=== PATIENT | female | born 1970 | race African-American/Black ===

== ENCOUNTER → 2016-03-27 | Outpatient (CLI) | payer OTHER ==
[~2016-03-27] MED LIST: ASPI325T45 EN; HYDR-5688 PO; IBUP-1449 PO; ONDA4TAB65 PO; TRAM-10 PO
--- NOTE | 2016-03-27 13:00 | DIAGNOSTIC IMAGING REPORT ---
MRI OF THE RIGHT KNEE CLINICAL HISTORY: Right knee pain. COMPARISON STUDY: Radiographs of the right knee dated 02/13/2016. TECHNIQUE: MRI of the right knee was performed utilizing proton density, T1, and T2-weighted sequences in the axial, sagittal, coronal planes. IV contrast was not administered for this examination. The examination is significantly degraded by large body habitus which necessitated using the body coil. FINDINGS: Menisci: The the lateral meniscus is intact. There is questionable tear involving the meniscal root of the medial meniscus. The medial meniscus is slightly extruded. Ligaments: The anterior and posterior cruciate ligaments are intact. The medial and lateral collateral ligaments are within normal limits. Extensor mechanism: The extensor mechanism is intact. Hoffa's fat pad is normal in appearance. There is mild nonspecific edema within the suprapatellar fat pad. Articular cartilage and bone: There is mild degenerative thinning of the articular cartilage in the lateral patellar facet. There is greater than 50% focal thinning of the articular cartilage in the medial patellar facet. No reactive marrow edema is seen. There is less than 50% thinning of the articular cartilage along the weightbearing surface in the medial and lateral compartments. No full-thickness cartilage loss is seen. Normal marrow signal is preserved of the visualized bony structures. Joint effusion: There is a moderate to large joint effusion. Soft tissues: There is symmetric atrophy of the regional musculature. There is soft tissue edema within the superficial and deep soft tissues around the knee. A popliteal cyst containing internal debris measures up to 5 cm. IMPRESSION: 1. Question a tear at the posterior root of the medial meniscus. 2. The cruciate ligaments, the collateral ligaments, and the lateral meniscus are intact. 3. Moderate to large joint effusion and popliteal cyst. 4. There is superficial and deep soft tissue edema involving the knee. 5. There is mild nonspecific edema within the suprapatellar fat pad. This can be seen in the quadriceps fat pad impingement syndrome. Clinical correlation will be required. Electronically signed by: Enrique Webb M.D. 03/27/2016 12:59 PM Dictated Date/Time: 03/27/2016 12:46 PM
== END | disposition home or self-care (01) ==
LOC: C.MRI 08:07
PROVIDERS: ATTEND Physical Medicine & Rehabilitation Sports Medicine
DX: M25.461 Effusion, right knee (principal); M71.21 Synovial cyst of popliteal space [Baker], right knee

== ENCOUNTER → 2016-04-03 | Outpatient (CLI) | payer OTHER | END | disposition home or self-care (01) | LOC: C.RDSM 08:00 | PROVIDERS: ATTEND Physical Medicine & Rehabilitation Sports Medicine | DX: M25.561 Pain in right knee (principal) ==

== ENCOUNTER → 2016-04-30 | Day surgery (SDC) | payer OTHER ==
[2016-04-17 14:39] LABS: BASO % 0.2 %; BASO ABS # 0.01 K/uL (0-0.2); COMPLETE YES; EOS % 0.2 %; HEMATOCRIT 36.6 % (37-47); IG% 0.2 %; LYMPH % 47.5 %; LYMPH ABS # 2.75 K/uL (1.2-3.4); MEAN CELL VOLUME 88.2 fL (80-100); MEAN CORPUSCULAR HEMOGLOBIN 29.2 pg (25-34); MEAN CORPUSCULAR HGB CONC 33.1 g/dl (32-36); MEAN PLATELET VOLUME 10.6 fL (7.4-10.4); MONO % 6.7 %; NEUT % 45.2 %; PLATELET COUNT 183 K/uL (130-400); RED BLOOD COUNT 4.15 M/uL (4.2-5.4); WHITE BLOOD COUNT 5.79 K/uL (4.8-10.8)
[2016-04-17 15:09] LABS: ALT/SGPT 32 U/L (12-78); BLOOD UREA NITROGEN 13 mg/dl (7-18); BUN/CREATININE RATIO 18.1 (10-20); CALCIUM 8.9 mg/dl (8.5-10.1); CARBON DIOXIDE 25 mmol/L (21-32); CHLORIDE 104 mmol/L (98-107); CREATININE 0.72 mg/dl (0.60-1.20); GLUCOSE 75 mg/dl (70-99); POTASSIUM 3.6 mmol/L (3.5-5.1); SODIUM 138 mmol/L (136-145)
[2016-04-17 15:11] LABS: ALB/GLOB RATIO 0.9 (0.9-2); ALKALINE PHOSPHATASE 63 U/L (45-117); AST/SGOT 23 U/L (15-37)
[2016-04-17 15:20] VITALS: Ht 170.2 cm; Wt 94.5 kg
[~2016-04-30] VITALS: Ht 170.2 cm; Wt 94.5 kg
[~2016-04-30] MED LIST changes: +ATROPINE SULFATE 0.1 MG/ML 5ML SYR IV PRN; +BUPIVACAINE/EPINEPHRINE 0.5% MPF 1:200,000 30 ML VIAL ONE; +CEFAZOLIN 2000 MG/60 ML D5W IV SCH; +DEXAMETHASONE SOD INJ 4 MG/ML VIAL ONE; +DiphenhydrAMINE HCL 50 MG/ML VIAL ONE; +EpHEDrine SULFATE INJ 50 MG/ML AMP IV PRN; +EpHEDrine SULFATE INJ 50 MG/ML AMP ONE; +FENTANYL CITRATE INJ 50 MCG/1 ML 2 ML VIAL IV PRN; +FENTANYL CITRATE INJ 50 MCG/1 ML 2 ML VIAL ONE; +HYDROCODONE/ACETAMOPHEN 5/325MG TAB PO PRN; +KETOROLAC TROMETHAMINE 30 MG/ML VIAL IV STA; +KETOROLAC TROMETHAMINE 30 MG/ML VIAL ONE; +LABETALOL HCL IV 5 MG/ML 20ML IV STA; +LABETALOL HCL IV 5 MG/ML 20ML ONE; +LACTATED RINGER'S 1000ML 1,000 ML IV SCH; +LIDOCAINE HCL 2% 2 ML VIAL (20MG/ML) ONE; +LIDOCAINE/EPINEPHRINE 1% INJ 50 ML VIAL ONE; +MIDAZOLAM HCL 1 MG/ML 2ML VIAL ONE; +MoRPHine SULFATE 2 MG/ML CARP IV PRN; +ONDANSETRON INJ 2 MG/ML 2 ML VIAL IV PRN; +ONDANSETRON INJ 2 MG/ML 2 ML VIAL ONE; +PROPOFOL IV EMULSION 10 MG/ML 20 ML VIAL IV ONE; +SODIUM CHLORIDE 0.9% 1000ML 1,000 ML IV SCH; +SODIUM CHLORIDE 0.9% INJ 10 ML VIAL ONE
--- NOTE | 2016-04-30 11:27 | History & Physical Bridge Note ---
H&P Re-Evaluation Bridge Note: I have examined the patient, reviewed the History & Physical and in the interval since the performance of the History & Physical I have noted the following changes of clinical significance: No changes noted
--- NOTE | 2016-04-30 14:14 | [facility] Post Operative Brief Note ---
Immediate Operative Summary Operative Date Apr 30, 2016. Pre-Operative Diagnosis Right knee medial meniscus tear Post-Operative Diagnosis same, chondrmalacia Procedure(s) Performed Right Knee Arthroscopy, Medial Meniscus root Repair, Chrondroplasty of patella and medial femoral condyle Surgeon Dr Mcelroy Back Tufter Surgeon(s) Dr Zhou, megan krause, ms3 Estimated Blood Loss minimal Findings patella, medical condyle chondrosis, medial meniscus posterior root tear Specimens 0 Anesthesia LMA Complication(s) None Disposition Recovery Room / PACU
--- NOTE | 2016-04-30 14:34 | Discharge Instructions-SurgCtr ---
Discharge Instructions Date of Service Apr 30, 2016. Visit Reason for Visit: Right Knee Medial Meniscus Tear Discharge Discharge Diagnosis / Problem: Status post right medial meniscal root repair Discharge Goals Goal(s): Decrease discomfort, Improve function, Increase independence Medications Stopped Medications Name(s): D/C'D Motrin 04/17/16. Activity Recommendations Activity Limitations: per Instructions/Follow-up section Anesthesia . Post Anesthesia Instructions: If you have had General Anesthesia or IV Sedation: * Do not drive today. * Resume driving when surgeon permits. * Do not make important decisions or sign legal documents today. * Call surgeon for: 1. Temperature elevations greater than 101 degrees F. 2. Uncontrollable pain. 3. Excessive bleeding. 4. Persistent nausea and vomiting. 5. Medication intolerance (nausea, vomiting or rash). * For nausea and vomiting use only clear liquids such as: tea, soda, bouillon until nausea subsides, then gradually increase diet as tolerated. * If you have any concerns or questions, call your surgeon's office. If physician is unavailable and it is an emergency, call 911 or go to the nearest emergency room. . Instructions / Follow-Up Instructions / Follow-Up If you have any questions contact the office at . ACTIVITY RECOMMENDATIONS: * Heavy manual labor is not permitted until 4-6 months after surgery. * Sports are not permitted until 6-9 months after surgery. * Return to activity is individualized. * DRIVING: Driving is not permitted until 3-4 weeks after surgery at a minimum. Please ask your doctor when it is safe to resume driving. If you have an automatic vehicle and your left leg has been operated on, then you may begin driving as soon as you are comfortable and can drive safely. * BATHING: You may shower or sponge-bathe immediately after surgery. The dressing will need to be covered with a plastic bag or plastic wrap until the dressing is changed on the fourth or fifth day after surgery. Once the dressing has been changed on the fourth or fifth day after surgery, you may shower and get the incision wet. * Wash with regular soap and water. * Do not bathe (submerge the incision), soak, swim or use a hot tub until the incision is completely healed over with normal skin and the doctor has given the OK to proceed. * There is no need to apply any ointments, powders or salves to your incision. * Do not apply alcohol or hydrogen peroxide directly to the incision. Diluted peroxide (50:50 mixture with sterile saline) may be used to clean dried blood from around the incision area. WORK/SCHOOL: * You may return to sedentary work or school when you are feeling comfortable. This is usually 3-7 days after surgery. * Expect increased discomfort with increased activity. Continue to elevate and ice the leg as much as possible. DIET: * Resume previous diet. MEDICATIONS: * You will have a prescription for pain medication and an anti-inflammatory medication after surgery. Use the pain pills for severe pain and the anti-inflammatory for less severe pain. * Once the pain pills have run out, try to use the anti-inflammatory. If this is not effective then contact the office for assistance. * The pain medication may cause nausea, constipation and sleepiness. You should see how they affect you before driving or similar activity. * The anti-inflammatory may cause stomach upset and bleeding. If this occurs, let your doctor know immediately . * Some patients may need blood clot prevention. This can be done with either a pill or a simple shot. Your doctor will advise you on when to begin these medications and how to take them. * Do not take aspirin or other anti-inflammatory products (i.e. Advil or Aleve ) if taking blood thinner medication. * Take a stool softener like Colace or a stimulant like Senokot to prevent constipation. SPECIAL CARE INSTRUCTIONS: The following instructions are a useful guide to questions you may have after your surgery. If you have any questions contact the office at . ICE: * You have the option of an ice cooler, gel packs or ice bags. * If you have an ice cooler, refer to the instructions for that device. * If you do not have an ice cooler, then you will need to use ice bags or gel packs. * Do not apply ice directly to the skin. * Use a thin dressing or stockinet between the skin and ice bag. * Apply ice for 20-30 minutes and repeat every 2-4 hours. This is especially important for the first 7-10 days after surgery. * Once the pain improves, use ice as needed. * The ice cooler can be used continuously. ELEVATION: * Keep your leg elevated at or above the level of your heart as much as possible. * Expect some increased discomfort and swelling if you are standing for any length of time. * When lying down, avoid placing anything under your knee. Rather, prop your leg up by placing several pillows under your heel or calf. DRESSING: * Your dressing will be changed at your first therapy appointment approximately 4-5 days after surgery. * Band-Aids, tape strips or gauze may be applied. You may then change your dressing daily. * Always wash your hands prior to touching the incision area. * Reapply dressing followed by the Navid wrap or Tubi-coremaker floor stockinet, ice cooling pad and then the brace. * Once the stitches are removed, you may leave the wound open to air or cover with an Navid Bandage or Tubi-coremaker floor stockinet. * If you have been given a white elastic stocking (DANELLE hose), wear as much as possible for the first 1-3 weeks depending on swelling. * Expect some bloody drainage for the first few days after surgery. * Leave the tape strips in place for 5-7 days. * Band-Aids and gauze may be changed daily. CRUTCHES: * You will need to use crutches after surgery. * Until your first doctor's appointment, you must use your crutches at all times when walking and should put no more than 50% of your normal weight on the surgical leg. * After your first doctor's appointment, you may gradually progress to full weight bearing and discontinue crutches as tolerated under the guidance of your therapist. * If you have had a microfracture procedure done, you may be advised to be non- weight bearing for up to 6 weeks. BRACE: * After surgery, you will be placed into a range of motion brace locked with your leg straight. This brace is to be worn at all times when walking (even with the crutches) and sleeping until your first doctors appointment. * The brace may be removed for therapy. * After your first therapy appointment, your therapist will open the brace to allow bending of the knee once your muscles are working better. * Until your first doctor's appointment, you should sleep with your brace locked with your knee fully straight. * If you have chosen to use a functional ACL brace then this brace will be supplied about 2-3 months after your surgery. During that time, you will attend therapy 2- 3 times per week. You will also need to do daily exercises for range of motion and strength as instructed. PROBLEMS/QUESTIONS: * If you have any problems such as severe pain, numbness, tingling or high fevers or if you have any questions, please contact the office at [phone]. * It is not uncommon to have some numbness and tingling after the surgery especially if you have had a nerve block done. This should gradually improve over the first 1- 2 days. If this persists longer or worsens then contact the office. FOLLOW UP VISIT: * If not already scheduled, please call the office at to schedule follow-up appointments for approximately 10 days and one month after surgery followed by monthly appointments thereafter. * Follow up with Dr. Mcelroy 05/11/16 at 1pm * Follow up with Physical Therapy 05/04/16 at 10.30am Diet Recommendations Home Diet: no limitations, resume previous diet Procedures Procedures Performed: Right Knee Arthroscopy, Medial Meniscus root Repair, Chrondroplasty of patella and medial femoral condyle Pending Studies Studies pending at discharge: no Medical Emergencies . Who to Call and When: Medical Emergencies: If at any time you feel your situation is an emergency, please call 911 immediately. . Non-Emergent Contact Non-Emergency issues call your: Surgeon Call Non-Emergent contact if: temperature is above 101, your pain is not controlled, wound has increased drainage . . "Provider Documentation" section prepared by Butch Shine.
--- NOTE | 2016-04-30 14:36 | [facility] Post Operative Brief Note ---
Immediate Operative Summary Operative Date Apr 30, 2016. Pre-Operative Diagnosis Right knee medial meniscus tear Post-Operative Diagnosis same, chondrmalacia Procedure(s) Performed Right Knee Arthroscopy, Medial Meniscus root Repair, Chrondroplasty of patella and medial femoral condyle Surgeon Dr Mcelroy Riding Teacher Surgeon(s) megan Claros, ms3 Estimated Blood Loss minimal Specimens 0 Complication(s) None Disposition PCU
[2016-04-30 15:13] VITALS: TEMP 36.9
[2016-04-30 16:14] VITALS: BP 136/84; PULSE 80; O2SAT 99
--- NOTE | 2016-04-30 16:18 | Anesthesia Progress Nt - [facility] ---
Anesthesia Post Op Note Date & Time Apr 30, 2016 at 16:18 Vital Signs Pain Intensity: 3.0 Vital Signs Past 12 Hours Date Time Temp Pulse Resp B/P Pulse Ox O2 Delivery O2 Flow Rate FiO2 04/30/16 16:14 80 136/84 99 Room Air 04/30/16 16:00 75 155/90 97 Room Air 04/30/16 15:25 76 156/98 98 Room Air 04/30/16 15:15 159/99 04/30/16 15:13 36.9 71 16 151/94 99 Room Air 04/30/16 15:11 78 21 97 04/30/16 15:11 78 21 04/30/16 15:10 151/94 04/30/16 15:06 78 12 04/30/16 15:06 77 12 100 04/30/16 15:05 172/107 04/30/16 15:01 69 14 04/30/16 15:01 68 14 100 04/30/16 15:00 157/106 04/30/16 14:56 77 14 04/30/16 14:56 76 14 100 04/30/16 14:55 149/94 04/30/16 14:51 70 13 100 04/30/16 14:51 70 13 04/30/16 14:50 149/102 04/30/16 14:46 73 12 04/30/16 14:46 73 12 100 04/30/16 14:45 164/103 04/30/16 14:41 86 13 04/30/16 14:41 86 13 100 04/30/16 14:40 166/97 04/30/16 14:36 69 17 100 04/30/16 14:36 70 17 04/30/16 14:35 156/100 04/30/16 14:31 79 16 100 04/30/16 14:31 79 16 04/30/16 14:30 157/105 04/30/16 14:26 91 04/30/16 14:26 91 156/113 100 04/30/16 14:26 37.1 90 12 156/113 100 Diffusion Mask 6 04/30/16 09:59 36.7 89 16 159/100 98 Room Air Notes Mental Status: alert / awake / arousable, participated in evaluation Pt Amnestic to Procedure: Yes Nausea / Vomiting: adequately controlled Pain: adequately controlled Airway Patency, RR, SpO2: stable & adequate BP & HR: stable & adequate Hydration State: stable & adequate Anesthetic Complications: no major complications apparent
--- NOTE | 2016-04-30 16:28 | OPERATIVE REPORT ---
DATE OF OPERATION: 04/30/2016 PREOPERATIVE DIAGNOSIS: Medial meniscal root tear of the right knee. 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 PROCEDURES: Chondroplasty of the medial femoral condyle and patella and repair of medial meniscal root posterior horn. SURGEON: Dr. Cheo Mcelroy. REHABILITATION SERVICES COORDINATOR: Butch Hernandez, fellow. No PA available. SECOND REHABILITATION SERVICES COORDINATOR: Alicia Hurd [facility] [employer] [facility] [employer] third year medical student. ANESTHESIA: Laryngeal mask. INDICATIONS OF PROCEDURE: The patient is a 45-year-old female who has pain and swelling in her right knee. Her exam was consistent with a torn meniscus. The MRI demonstrates a medial meniscal root tear and she is taken to surgery for surgical debridement versus repair depending on findings. Treatment options, risks and benefits were discussed and she elected to proceed with surgery. PROCEDURE IN DETAIL: Informed consent was obtained. The patient was identified as Kina Saenz. She identified the operative site as the right knee. I marked it with my initials. A preop surgical timeout was performed. A preop dose of IV antibiotics was given. She was taken to the operating room and positioned supine on the operating room table. A tourniquet was applied to the right thigh. A lateral post was used for stressing the knee. The limb was prepped and draped in the usual sterile fashion. She had a moderate effusion. She had intact cruciate and collateral stability with range of motion of approximately 7/0/135, equal bilaterally. Her right leg was prepped and draped in the usual sterile fashion. DVT prophylaxis intraoperatively with foot pump and postoperatively with early mobility and aspirin. Prior to start of procedure, 1% lidocaine with epinephrine, approximately 12 mL, was injected into the fat pad, portal sites and knee joint. Inferolateral viewing portal, superolateral outflow portal, and inferomedial working portal were established. Diagnostic arthroscopy was performed. A moderate effusion was evacuated. Cartilaginous debris was noted in the knee along with some generalized synovitis. There was some grade 1 and 2 chondrosis involving the medial portion of the patellar facet and median ridge, which was debrided. The patella otherwise was normal. Trochlea normal. There was a small loose body about 0.5 cm in size, which was evacuated during the debridement. The retropatellar fat pad was hypertrophic and was debrided. The medial and lateral gutters were normal. Popliteal hiatus was normal. The posteromedial and lateral compartments were normal. The ACL and PCL were normal. The lateral compartment showed some grade 1 softening of the lateral tibial plateau, normal femoral articular cartilage and normal lateral meniscus. The medial compartment showed some grade 1 and 2 changes over 1.5 x 1.5 cm area of the weightbearing area of the medial femoral condyle. This was not a high-grade damage and certainly not down to the bone. The tibial side was normal. The meniscus showed a posterior horn root tear within 1 cm of the meniscal root. The meniscus otherwise was normal with good quality tissue and repair was elected. I debrided the posterior horn meniscal root area to prepare for repair. The MCL was perforated with a spinal needle to improve visualization. An anteromedial incision was made for the drill. The [employer] drill guide was inserted at a 45 degree angle. A pin was drilled into place in good position at the posterior root attachment. A guide was placed over the drill bit and exchanged for a FlipCutter drill at the same position. The FlipCutter deployed and a socket of 5 mm depth x 6 mm diameter was drilled. A FiberTape was then shuttled up into this tunnel for later retrieval. I then went ahead and used the meniscal scorpion to pass 2-0 FiberWire lengths through the meniscal tissue in the mid portion of the posterior horn and body, about 4 and 8 mm medial to the tear. These were passed and tightened through the loop and then shuttled down the tibial tunnel with the fiber stick. The tensor was then applied and the tear reduced nicely into the socket. The knee was then held in about 20 degrees of flexion and the sutures were tied over small button on the tibial tunnel. This was dissected directly down to the bone, so that the button can rest on the bone. After repair, the knee could be fully extended and flexed to about 30 degrees with no difficulty and the repair was stable. The shaver was run through the knee to pickling grader loose debris. The portals were closed with 4-0 nylon. The incision was closed with 0 Vicryl and a 3-0 Prolene subcuticular stitch, a full length Navid wrap and a soft sterile dressing was applied along with a hinged brace locked in extension. The patient was awakened from anesthesia without difficulty and taken to recovery in stable condition. There were no specimens or complications. Counts were correct at the end of case. Blood loss was minimal. At the conclusion of the operation, I spoke to the patient's family and informed them of my findings. Postoperative instructions were given. I spoke with her . Prior to the repair, the tourniquet was inflated to 250 mmHg after exsanguinating the limb with the Esmarch and that was let down after 60 minutes of inflation at the conclusion of the procedure. She is to be nonweightbearing with her leg locked in extension using the brace. She is unable work. She is to take aspirin 325 mg for DVT prophylaxis beginning tomorrow morning. The meniscal tear appeared to be somewhat acutely subacute as there appeared to be some granulation tissue. There was some granulation tissue present and the meniscal tissue was not significantly atrophied or healed over a smooth fashion. It appeared to be more frayed in nature. The meniscal quality of tissue was good. I attest to the content of the Intraoperative Record and any orders documented therein. Any exceptio ns are noted below.
--- NOTE | 2016-04-30 16:46 | Medical Student: [facility] ---
Immediate Operative Summary Operative Date Apr 30, 2016. Pre-Operative Diagnosis Medial meniscal root tear of the R knee Post-Operative Diagnosis Medial meniscal root tear of R knee,chondrosis of femoral condyle & patella Procedure(s) Performed Right knee arthroscopy Repair of medial mensical root tear of right knee Chondroplasty of right medial femoral condyle and patella Surgeon Dr. 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
== END | disposition home or self-care (01) ==
LOC: X.SURG 09:28
PROVIDERS: ATTEND Physical Medicine & Rehabilitation Sports Medicine
DX: M23.231 Derangement of other medial meniscus due to old tear or injury, right knee (principal); M94.261 Chondromalacia, right knee; D64.9 Anemia, unspecified; E03.9 Hypothyroidism, unspecified; Z98.890 Other specified postprocedural states

== ENCOUNTER → 2016-05-11 | Outpatient (CLI) | payer OTHER ==
[~2016-05-11] MED LIST changes: -ATROPINE SULFATE 0.1 MG/ML 5ML SYR IV PRN; -BUPIVACAINE/EPINEPHRINE 0.5% MPF 1:200,000 30 ML VIAL ONE; -CEFAZOLIN 2000 MG/60 ML D5W IV SCH; -DEXAMETHASONE SOD INJ 4 MG/ML VIAL ONE; -DiphenhydrAMINE HCL 50 MG/ML VIAL ONE; -EpHEDrine SULFATE INJ 50 MG/ML AMP IV PRN; -EpHEDrine SULFATE INJ 50 MG/ML AMP ONE; -FENTANYL CITRATE INJ 50 MCG/1 ML 2 ML VIAL IV PRN; -FENTANYL CITRATE INJ 50 MCG/1 ML 2 ML VIAL ONE; -HYDROCODONE/ACETAMOPHEN 5/325MG TAB PO PRN; -KETOROLAC TROMETHAMINE 30 MG/ML VIAL IV STA; -KETOROLAC TROMETHAMINE 30 MG/ML VIAL ONE; -LABETALOL HCL IV 5 MG/ML 20ML IV STA; -LABETALOL HCL IV 5 MG/ML 20ML ONE; -LACTATED RINGER'S 1000ML 1,000 ML IV SCH; -LIDOCAINE HCL 2% 2 ML VIAL (20MG/ML) ONE; -LIDOCAINE/EPINEPHRINE 1% INJ 50 ML VIAL ONE; -MIDAZOLAM HCL 1 MG/ML 2ML VIAL ONE; -MoRPHine SULFATE 2 MG/ML CARP IV PRN; -ONDANSETRON INJ 2 MG/ML 2 ML VIAL IV PRN; -ONDANSETRON INJ 2 MG/ML 2 ML VIAL ONE; -PROPOFOL IV EMULSION 10 MG/ML 20 ML VIAL IV ONE; -SODIUM CHLORIDE 0.9% 1000ML 1,000 ML IV SCH; -SODIUM CHLORIDE 0.9% INJ 10 ML VIAL ONE; -TRAM-10 PO
== END | disposition home or self-care (01) ==
LOC: C.RDSM 08:00
PROVIDERS: ATTEND Physical Medicine & Rehabilitation Sports Medicine
DX: S83.231D Complex tear of medial meniscus, current injury, right knee, subsequent encounter (principal); X58.XXXD Exposure to other specified factors, subsequent encounter

== ENCOUNTER → 2016-10-14 | Outpatient (CLI) | payer OTHER ==
[~2016-10-14] MED LIST changes: -ONDA4TAB65 PO
--- NOTE | 2016-10-15 13:58 | MAMMOGRAPHY REPORT ---
BILATERAL DIGITAL SCREENING MAMMOGRAM TOMOSYNTHESIS WITH CAD: 10/14/2016 CLINICAL HISTORY: Routine screening. Patient has no complaints. TECHNIQUE: Breast tomosynthesis in addition to standard 2D mammography was performed. Current study was also evaluated with a Computer Aided Detection (CAD) system. COMPARISON: Comparison is made to exams dated: 10/17/2013 mammogram - [facility] an d 10/29/2010 mammogram. BREAST COMPOSITION: The tissue of both breasts is heterogeneously dense, which may obscure small mas ses. FINDINGS: No suspicious masses, calcifications, or areas of architectural distortion are noted in ei ther breast. There has been no significant interval change compared to prior exams. IMPRESSION: ACR BI-RADS CATEGORY 1: NEGATIVE There is no mammographic evidence of malignancy. A 1 year screening mammogram is recommended. The pa tient will receive written notification of the results. Approximately 10% of breast cancers are not detected with mammography. A negative mammographic report should not delay biopsy if a clinically suggestive mass is present. Kiara Dooley M.D. ah/:10/14/2016 16:14:11 [employer]acht: Shelby James RT(R)(M), [facility] letter sent: Normal 1/2 BI-RADS Code: ACR BI-RADS Category 1: Negative
== END | disposition home or self-care (01) ==
LOC: C.MAMM 13:15
PROVIDERS: ATTEND Family Medicine
DX: Z12.31 Encounter for screening mammogram for malignant neoplasm of breast (principal)